=== PATIENT | female | born 1935 | race Caucasian/White ===

== ENCOUNTER 2017-08-28 19:20 | Emergency (ER) | payer MEDICARE, MEDICAID ==
[~2017-08-28] VITALS: Ht 167.6 cm; Wt 90.7 kg
--- NOTE | 2017-08-28 19:59 | NUR ---
BIB FAMILY, AMBULAOTRY TO ER BED 7 C/O "N/V/DIZZINESS/EPIGASTRIC PAIN SINCE YESTERDAY" RR ANKIT AND UNLABORED. NO SOB NOTED. NAD NOTED. NO NVD AT THIS TIME. PT GOWNED AT THIS TIME. PLACED ON MONITOR WAITING FOR MD MICHAELS.
--- NOTE | 2017-08-28 20:02 | NUR ---
DR. KELLY AT BEDSIDE FOR EVAL.
--- NOTE | 2017-08-28 20:10 | NUR ---
LAB AT BEDSIDE FOR BLOOD DRAW
[2017-08-28 20:15] LABS: BASOPHILS # (AUTO) 0.1 /CMM (0.0-0.2); BASOPHILS % (AUTO) 0.9 % (0.0-2.0); EOSINOPHILS # (AUTO) 0.2 /CMM (0.0-0.7); EOSINOPHILS % (AUTO) 2.5 % (0.0-6.0); HEMATOCRIT 34 % (33-45); HEMOGLOBIN 11.8 g/dL (11.5-14.8); LYMPHOCYTES # (AUTO) 2.6 /CMM (0.8-4.8); LYMPHOCYTES % (AUTO) 37.6 % (20.0-44.0); MEAN CORPUSCULAR HEMOGLOBIN 30 PG (26.0-33.0); MEAN CORPUSCULAR HGB CONC 35 g/dl (31.0-36.0); MEAN CORPUSCULAR VOLUME 88 fL (82-100); MONOCYTES # (AUTO) 0.4 /CMM (0.1-1.30); MONOCYTES % (AUTO) 6.2 % (2.0-12.0); NEUTROPHILS # (AUTO) 3.7 /CMM (1.8-8.9); NEUTROPHILS % (AUTO) 52.8 % (43.0-81.0); PLATELET COUNT (AUTO) 222 /CMM (150-450); RDW COEFFICIENT OF VARIATION 12.5 (11.5-15.0); RED BLOOD CELL COUNT(AUTO) 3.92 MIL/uL (4.0-5.2)
[2017-08-28 20:37] LABS: CALCIUM, SERUM 9.5 mg/dL (8.5-10.1); CARBON DIOXIDE 29 mmol/L (21-32); CHLORIDE 103 mmol/L (98-107); CREATININE 1.3 mg/dL (0.6-1.3); GLUCOSE 106 mg/dL (74-106); POTASSIUM 3.1 mmol/L (3.5-5.1); SODIUM SERUM 141 mmol/L (136-145); UREA NITROGEN, BLOOD 25 mg/dL (7-18)
[2017-08-28] MEDS ORDERED: POTASSIUM CHLORIDE 20 MEQ TAB.PRT.SR PO ONE ×2 (20:59→21:00)
--- NOTE | 2017-08-28 21:01 | NUR ---
DR. KELLY AT BEDSIDE SPEAKING TO PT REGARDING POC/ RESULTS
[2017-08-28 21:29] VITALS: BP 138/70
--- NOTE | 2017-08-28 21:29 | NUR ---
Patient discharged to home in stable condition. Written and verbal after care instructions given. Patient verbalizes understanding of instruction. ambulatory with a steady gait
== END 2017-08-28 21:30 | disposition home or self-care (01) ==
LOC: ER 19:24
DX: E87.6 Hypokalemia (principal); E11.9 Type 2 diabetes mellitus without complications; I10 Essential (primary) hypertension; N39.0 Urinary tract infection, site not specified
CPT/HCPCS: 36415; 80048-TC; 85025-TC; A4606; Z7610

== ENCOUNTER 2019-08-28 18:17 | Inpatient (IN) | payer MEDICARE, MEDICAID ==
[~2019-08-28] VITALS: Ht 165.1 cm; Wt 92.1 kg
--- NOTE | 2019-08-28 02:30 | NUR ---
RN NOTES INFORMED DR. VICKERS THAT PT IS TAKING SEROQUEL 50 MG PO FOR SLEEPING.. GOT AN ORDER TO CONTINUE IT. ORDER NOTED AND CARRIED OUT Addendum: 08/29/19 at 0249 by CIARA YAP RN RIGHT TIME AND DATE 08/28/19 @ 1508
[2019-08-28] MEDS ORDERED: ONDANSETRON HCL/PF 4 MG/2 ML VIAL ONE (18:57)
[2019-08-28] MEDS ORDERED: ONDANSETRON HCL/PF 4 MG/2 ML VIAL IVP ONE (19:00)
[2019-08-28 19:10] LABS: BASOPHILS # (AUTO) 0.1 /CMM (0.0-0.2); BASOPHILS % (AUTO) 0.9 % (0.0-2.0); EOSINOPHILS % (AUTO) 2.3 % (0.0-6.0); HEMATOCRIT 36 % (33-45); HEMOGLOBIN 11.7 g/dL (11.5-14.8); LYMPHOCYTES # (AUTO) 1.3 /CMM (0.8-4.8); LYMPHOCYTES % (AUTO) 22.1 % (20.0-44.0); MEAN CORPUSCULAR HGB CONC 33 g/dl (31.0-36.0); MEAN CORPUSCULAR VOLUME 90 fL (82-100); MONOCYTES # (AUTO) 0.4 /CMM (0.1-1.30); MONOCYTES % (AUTO) 5.9 % (2.0-12.0); NEUTROPHILS # (AUTO) 4.1 /CMM (1.8-8.9); NEUTROPHILS % (AUTO) 68.8 % (43.0-81.0); PLATELET COUNT (AUTO) 206 /CMM (150-450); RED BLOOD CELL COUNT(AUTO) 3.98 MIL/uL (4.0-5.2)
[2019-08-28 19:13] LABS: APPEARANCE,URINE Slightly Cloudy (CLEAR); BILIRUBIN,URINE SMALL (NEGATIVE); BLOOD, URINE Negative Ery/uL (NEGATIVE); KETONES,URINE Negative (NEGATIVE); LEUKOCYTE ESTERASE ,URINE Negative (NEGATIVE); NITRITE, URINE Negative (NEGATIVE); PH,URINE 5.5 (5.0-8.0); PROTEIN,URINE 30 mg/dl (NEGATIVE); UGLUCOSE Negative (NEGATIVE)
[2019-08-28 19:15] LABS: COLOR,URINE DARK YELLOW (YELLOW)
--- NOTE | 2019-08-28 19:21 | NUR ---
patient bibra from home, confused and not eating x 2 days. On room air, breathing evenly and unlabored. connected to the monitor and pulse ox. wound dressing done, will continue to montor accordingly. daughter at bedside.
--- NOTE | 2019-08-28 19:23 | NUR ---
urine collected and sent to lab.
--- NOTE | 2019-08-28 19:23 | NUR ---
report given to Brenda GONSALES for amanda.
[2019-08-28 19:24] LABS: ALANINE AMINOTRANSFERASE 24 U/L (12-78); ALBUMIN 2.8 g/dL (3.4-5.0); ALKALINE PHOSPHATASE 50 U/L (46-116); ASPARTATE AMINOTRANSFERASE 28 U/L (15-37); BILIRUBIN,DIRECT 0.2 mg/dL (0.0-0.2); BILIRUBIN,TOTAL 0.9 mg/dL (0.2-1.0); CALCIUM, SERUM 9.3 mg/dL (8.5-10.1); CARBON DIOXIDE 29 mmol/L (21-32); CHLORIDE 114 mmol/L (98-107); CREATININE 1.2 mg/dL (0.6-1.3); GLUCOSE 146 mg/dL (74-106); LIPASE 192 U/L (73-393); POTASSIUM 3.8 mmol/L (3.5-5.1); SODIUM SERUM 151 mmol/L (136-145); TOTAL PROTEIN, SERUM 6.2 g/dL (6.4-8.2); UREA NITROGEN, BLOOD 25 mg/dL (7-18)
[2019-08-28 19:26] LABS: RBC,URINE 0-2 /HPF (0-2)
[2019-08-28 19:27] LABS: BACTERIA,URINE None seen /HPF (None Seen); SQUAMOUS EPITHELIAL CELL,UR Moderate /HPF (None Seen); WBC,URINE 0-2 /HPF (0-3)
--- NOTE | 2019-08-28 19:56 | NUR ---
CALLED NURSING SUP FOR M/S BED.
[2019-08-28] MEDS ORDERED: IV NS 0.9% 1,000 ML BAG IV ONE (20:00)
[2019-08-28] MEDS ORDERED: BISACODYL SUPP (10 MG) 10 MG/SUPP.RECT SUPP.RECT RC ONE ×2 (20:00→20:21)
[2019-08-28] MEDS ORDERED: NA PHOS,M-B/NA PHOS,DI-BA 1 EA ENEMA RC ONE ×2 (20:00→20:21)
[2019-08-28] MEDS ORDERED: LOSA100T31 PO (20:55)
[2019-08-28] MEDS ORDERED: SITA1TAB6 PO (20:55)
[2019-08-28] MEDS ORDERED: ASPI-1152 PO (20:55)
[2019-08-28] MEDS ORDERED: MEMA10TA PO (20:55)
--- NOTE | 2019-08-28 21:18 | NUR ---
PT TAKEN UP TO 2ND FLOOR VIA [facility]
--- NOTE | 2019-08-28 21:20 | NUR ---
RN NOTES RECEIVED PT. FROM ER WITH DX. OF DEHYDRATION, CONSTIPATION, DYSPHAGIA, A/OX2. ROMANIAN SPEAKING, FAMILY AT BEDSIDE,SKIN ASSESSMENT WAS DONE, ADMISSION INSTRUCTION WAS RENDERED, CALL LIGHT WITHIN REACH, SIDERAILSUPX2, CONTINUE TO MONITOR
[2019-08-28 21:30] VITALS: BP 127/68
--- NOTE | 2019-08-28 22:35 | NUR ---
RN NOTES GOT THE RIGHT DOSE OF PT.'S MEDICATION ( SEROQUEL) FRIOM HER DAUGHTER JOHNY
[2019-08-28] MEDS ORDERED: Medication Not On Formulary EA (Sitagliptin Phos/Metformin Hcl (Janumet 50-1,000 Mg Tabl PO SCH (23:00)
[2019-08-28] MEDS ORDERED: QUET50TA PO (23:06)
[2019-08-28] MEDS ORDERED: MORPHINE SULFATE INJ 2 MG/ML DISP.SYRIN IV PRN (23:30)
[2019-08-28] MEDS ORDERED: DEXTROSE 50%-WATER 50 ML DISP.SYRIN IV PRN (23:30)
[2019-08-28] MEDS ORDERED: TEMAZEPAM 7.5 MG CAPSULE PO PRN (23:30)
[2019-08-28] MEDS: ASPIRIN EC 81 MG TABLET.DR PO SCH (23:38)
[2019-08-28] MEDS: QUETIAPINE FUMARATE 25 MG TABLET PO SCH (23:48)
[2019-08-29 02:01] VITALS: BP 127/68
[2019-08-29 06:54] LABS: BASOPHILS % (AUTO) 0.6 % (0.0-2.0); EOSINOPHILS % (AUTO) 3.4 % (0.0-6.0); HEMATOCRIT 36 % (33-45); HEMOGLOBIN 11.7 g/dL (11.5-14.8); LYMPHOCYTES # (AUTO) 1.5 /CMM (0.8-4.8); MEAN CORPUSCULAR HGB CONC 32 g/dl (31.0-36.0); MEAN CORPUSCULAR VOLUME 91 fL (82-100); MONOCYTES # (AUTO) 0.4 /CMM (0.1-1.30); MONOCYTES % (AUTO) 7.3 % (2.0-12.0); NEUTROPHILS # (AUTO) 3.5 /CMM (1.8-8.9); NEUTROPHILS % (AUTO) 62.7 % (43.0-81.0); PLATELET COUNT (AUTO) 189 /CMM (150-450); RED BLOOD CELL COUNT(AUTO) 4.01 MIL/uL (4.0-5.2); WHITE BLOOD COUNT (AUTO) 5.6 K/uL (4.3-11.0)
[2019-08-29 07:00] LABS: CHOLESTEROL 152 mg/dL (<200); HDL CHOLESTEROL 44 mg/dL (40-60); LDL 76 mg/dL (0-99); TRIGLYCERIDES 106 mg/dL (30-150)
--- NOTE | 2019-08-29 07:00 | NUR ---
RN NOTES PT IS AWAKE , NOT IN DISTRESS, NO PAIN NOTED, MORNING CARE RENDERED, CALL LIGHT WITHIN REACH, SIDERAILSUPX2, PT. NEEDS ATTENDED
[2019-08-29 07:06] LABS: IRON, SERUM 41 ug/dl (50-175); TOTAL IRON BINDING CAPACITY 220 ug/dl (250-450)
[2019-08-29 07:13] LABS: ALANINE AMINOTRANSFERASE 22 U/L (12-78); ALBUMIN 2.5 g/dL (3.4-5.0); ALKALINE PHOSPHATASE 44 U/L (46-116); ASPARTATE AMINOTRANSFERASE 26 U/L (15-37); B-TYPE NATRIURETIC PEPTIDE 255 PG/ML (0-125); CALCIUM, SERUM 8.8 mg/dL (8.5-10.1); CARBON DIOXIDE 25 mmol/L (21-32); CHLORIDE 116 mmol/L (98-107); CREATININE 1.2 mg/dL (0.6-1.3); GLUCOSE 122 mg/dL (74-106); MAGNESIUM 2.1 mg/dL (1.8-2.4); PHOSPHORUS 4.3 mg/dL (2.5-4.9); POTASSIUM 3.8 mmol/L (3.5-5.1); SODIUM SERUM 151 mmol/L (136-145); TOTAL PROTEIN, SERUM 5.9 g/dL (6.4-8.2); UREA NITROGEN, BLOOD 22 mg/dL (7-18)
--- NOTE | 2019-08-29 07:26 | NUR ---
MS RN OPENING NOTES RECEIVED PATIENT IN BED, ASLEEP, AROUSBALE TO VERBAL AND TACTILE STIMULI. HOB ELEVATED. DENIES ANY C/O PAIN NOR DISCOMFORT AT THIS TIME. RT HAND # 20 INTACT AND PATENT. BED IN LOWEST POSITION, LOCKED. BED ALARM ON. CALL LIGHT WITHIN REACH.
--- NOTE | 2019-08-29 07:45 | NUR ---
MS RN NOTES PATIENT'S DTR (JOHNY) CALLED AND STATED OK TO GIVE INFORMATION AND ADD GRANDSON (AMPARO) TO FACE SHEET AND HE WILL BE INVOLVED WITH CARE WELL. AMPARO ( GRANDSON: ) [phone]. JOHNY (DTR: TEACHER) [phone]
[2019-08-29 08:00] VITALS: BP 131/67
[2019-08-29] MEDS: BLOOD SUGAR DIAGNOSTIC 1 EACH STRIP IN SCH ×4 (08:17→21:19)
[2019-08-29] MEDS: PANTOPRAZOLE 40 MG TABLET.DR PO SCH (08:19)
[2019-08-29] MEDS: METFORMIN 500 MG TABLET PO SCH (08:44)
[2019-08-29] MEDS: MEMANTINE HCL 5 MG TABLET PO SCH ×2 (08:44→17:47)
[2019-08-29] MEDS: LINAGLIPTIN 5 MG TABLET PO SCH (08:44)
[2019-08-29] MEDS: ASPIRIN EC 81 MG TABLET.DR PO SCH (08:44)
[2019-08-29] MEDS: IV 1/2NS 1000 ML 1,000 ML IV PRN ×2 (10:32→23:44)
--- NOTE | 2019-08-29 11:49 | NUR ---
Social service consult requested by wound RN Sherri for multiple pressure ulcers. Per chart review and MD notes, Pt is a 83-year-old female Solomon Islander-speaking was brought to the emergency department due to worsening oral intake, nausea and nonbloody vomiting, more altered mental status and significant constipation for almost 8 days. Pt has a diagnosis of Dementia and is unable to provide any meaningful history. INTERCELL CONNECTOR PLACER was informed by pt's bedside RN that pt's daughter Astrid and has given permission to [facility] staff to speak with her son Dr. 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 INTERCELL CONNECTOR PLACER contacted pt's grandson Andrei who reported that pt lives at home with a 24/7 caregiver. Pt has very good family support as well. Per Andrei, pt is receiving home health services for the past couple of months. For the past week, [facility] home health agency was coming to pt's home on a daily basis for the wound on her heel. Andrei stated, they had got her new boots for her feet, however pt. didn't feel comfortable in them and developed a blister that burst. Since then pt has not been able to place pressure on her feet and has been bedridden for approximately two and a half weeks. Family is hoping and prefers to take pt back home, if pt. is able. [facility] informed him that a top case assembler will also be contacting him regarding plan of care.
[2019-08-29] MEDS: GLUCERNA SHAKE 237 ML CAN PO SCH ×2 (12:57→18:20)
[2019-08-29 15:55] VITALS: BP 111/59
[2019-08-29] MEDS: ONDANSETRON HCL/PF 4 MG/2 ML VIAL IVP PRN (17:59)
--- NOTE | 2019-08-29 18:50 | NUR ---
MS RN CLOSING NOTES PATIENT RESTING COMFORTABLY IN BED. HOB ELEVATED. NO S/S OF RESPIRATORY DISTRESS. DENIES ANY C/O PAIN NOR DISCOMFORT AT THIS TIME. RT HAND # 20 INTACT AND PATENT INFUSING NS AT 75ML/HR MAYRA HENNING. SEEN BY ST MAYRA HENNING. ON PUREED DIET WITH FAIR PO INTAKE OBSERVED DURING DINNER. BED IN LOWEST POSITION, LOCKED. BED ALARM ON. CALL LIGHT WITHIN REACH. IN NO APPARENT DISTRESS.
--- NOTE | 2019-08-29 19:40 | NUR ---
RN NOTES RECEIVED PT. AWAKE ON BED, A/OX2- SAO TOMEAN SPEAKING, FAMILY AT BEDSIDE, NO APIN NOTED, NO SOB, CALL LIGHT WITHIN REACH, SIDERAILSUPX2, CONTINUE TO MONITOR
[2019-08-29 20:00] VITALS: BP 114/56
--- NOTE | 2019-08-29 21:15 | NUR ---
Met with patient and daughter Astrid at bedside. Patient primary language is New Zealander. She lives locally with a 24/7 caregiver in the first floor senior apartment. She is not ambulatory for months now due to foot ulcers. She is confined to chair and bed most of the time and requires max to total assist with adl's. She is currently on service with [employer] but family cannot recall the name os the company. She own a walker and receives [facility] provider. Current dc plan is to return home. Addendum: 08/29/19 at 2116 by DLE BENOIT RN Amended: Links added.
[2019-08-29] MEDS: QUETIAPINE FUMARATE 25 MG TABLET PO SCH (21:18)
--- NOTE | 2019-08-29 22:00 | NUR ---
RN NOTES BLOOD SUGAR-137.. NO INSULIN COVERAGE GIVEN .. PT REFUSED TO EAT
--- NOTE | 2019-08-29 22:08 | NUR ---
Met with patient and daughter Astrid at bedside. Patient primary language is Mongolian. She lives locally with a 24/7 caregiver in the first floor senior apartment. She is not ambulatory for months now due to foot ulcers. She is confined to chair and bed most of the time and requires max to total assist with adl's. She is currently on service with [employer] but family cannot recall the name os the company. She own a walker and receives [facility] provider. Current dc plan is to return home. Pcp is Dr. Andrei Casas in [place] Addendum: 08/29/19 at 2208 by DEL BENOIT RN Amended: Links added.
--- NOTE | 2019-08-30 06:53 | NUR ---
RN NOTES AWAKE, MORNING CARE RENDERED, DENIES PAIN, NO SOB, SIDERAILSUPX2, PT. NEEDS ATTENDED
--- NOTE | 2019-08-30 07:13 | NUR ---
MS RN OPENING NOTES RECEIVED PATIENT IN BED ALERT AND AWAKE ORIENTED X1 -2. HOB ELEVATED. NO SOB. DENIES ANY C/O PAIN NOR DISCOMFORT AT THIS TIME. RT HAND # 20 INTACT AND PATENT INFUSING 1/2 NS @ 75ML/HR. BED IN LOWEST POSITION, LOCKED. BED ALARM ON. CALL LIGHT WITHIN REACH.
[2019-08-30 07:30] VITALS: BP 106/66
[2019-08-30] MEDS: PANTOPRAZOLE 40 MG TABLET.DR PO SCH (08:16)
[2019-08-30] MEDS: BLOOD SUGAR DIAGNOSTIC 1 EACH STRIP IN SCH ×4 (08:16→22:27)
[2019-08-30] MEDS: GLUCERNA SHAKE 237 ML CAN PO SCH ×3 (08:17→17:34)
[2019-08-30] MEDS: METFORMIN 500 MG TABLET PO SCH (08:17)
[2019-08-30] MEDS: ASPIRIN EC 81 MG TABLET.DR PO SCH (08:17)
[2019-08-30] MEDS: LINAGLIPTIN 5 MG TABLET PO SCH (08:17)
[2019-08-30] MEDS: MEMANTINE HCL 5 MG TABLET PO SCH ×2 (08:17→17:34)
--- NOTE | 2019-08-30 10:59 | NUR ---
WOUND CARE CONSULT: PT PRESENTS WITH HEEL WOUNDS AND BREASTFOLD/PERIANAL REDNESS, PRESENT ON ADMISSION. DEFER TO DPM FOR LOWER EXTREMITIES. RECOMMENDATIONS MADE FOR SKIN PROTECTION AND SKIN CARE. DISCUSSED WITH NURSING STAFF. PT ON EDMOND ISOFLEX LOW AIRLOSS BED. WILL SEE PRN. MEI IN AGREEMENT WITH PLAN OF CARE. Addendum: 08/30/19 at 1100 by ABDOUL RITCHIE WNDNU Amended: Links added.
[2019-08-30] MEDS ORDERED: Z GUARD REMEDY 2 OZ OINT TP PRN (11:00)
[2019-08-30] MEDS: ONDANSETRON HCL/PF 4 MG/2 ML VIAL IVP PRN (12:23)
[2019-08-30] MEDS: THERAHONEY GEL 1.5 OZ TUBE TP SCH (12:23)
[2019-08-30] MEDS: Z GUARD REMEDY 2 OZ OINT TP SCH (12:24)
[2019-08-30] MEDS: IV 1/2NS 1000 ML 1,000 ML IV PRN (16:24)
--- NOTE | 2019-08-30 19:25 | NUR ---
MS RN CLOSING NOTES PATIENT RESTING COMFORTABLY IN BED. HOB ELEVATED. NO SOB. DENIES ANY C/O PAIN NOR DISCOMFORT AT THIS TIME. RT HAND # 20 INTACT AND PATENT INFUSING NS AT 75ML/HR MAYRA WELL. FAMILY AT BEDSIDE. WOUND CARE DONE MAYRA WELL. BED IN LOWEST POSITION, LOCKED. BED ALARM ON. CALL LIGHT WITHIN REACH. IN NO APPARENT DISTRESS.
--- NOTE | 2019-08-30 19:26 | NUR ---
MS RN NOTES NOTED PATIENT WITH LARGE BM DURING HE SHIFT X1.
--- NOTE | 2019-08-30 19:50 | NUR ---
RN NOTES RECEIVED PATIENT, AWAKE, PUERTO RICAN SPEAKING, RESTING COMFORTABLY IN HER BED. SAFETY MEASURES IN PLACE, BED IN LOW LOCKED POSITION, CALL LIGHT WITHIN EASY REACH, KEEP CLEAN DRY AND COMFORTABLE. IV ACCESS INTACT AND PATENT, NO SIGNS AND SYMPTOMS OF INFECTION, ALL NEEDS ANTICIPATED, WILL CONTINUE TO MONITOR ACCORDINGLY.
[2019-08-30 20:00] VITALS: BP 116/48
[2019-08-30 20:49] VITALS: BP 116/48
[2019-08-30] MEDS: QUETIAPINE FUMARATE 25 MG TABLET PO SCH (21:47)
--- NOTE | 2019-08-30 22:00 | NUR ---
RN NOTES ACCU-CHECK DONE, RESULT IS 106MG/DL ( FAILED DATA TRANSFER )NO COVERAGE PER SLIDING SCALE.
[2019-08-31] MEDS: IV 1/2NS 1000 ML 1,000 ML IV PRN ×2 (05:28→20:54)
--- NOTE | 2019-08-31 06:16 | NUR ---
RN NOTES ALL NEEDS ATTENDED AND MET, ABLE TO REST AND SLEPT AT INTERVALS, NO DISTRESS. WILL ENDORSE TO AM NURSE FOR CONTINUITY OF CARE.
[2019-08-31] MEDS: BLOOD SUGAR DIAGNOSTIC 1 EACH STRIP IN SCH ×4 (07:17→22:41)
--- NOTE | 2019-08-31 07:30 | NUR ---
MS/RN Patient received Patient received from nightshift. Upon receiving patient, right hand and arm noted to be with +4 edema. IV previously inserted on that hand and wrapped with desiree wrap. IV fluids stopped and heplock removed. Arm elevated on pillows, will inform MD. Does not appear to be in any pain or distress, vital signs stable. Safety measures in place, call light in reach, bed in low setting, side rails X3 in upright position. Will continue to monitor.
[2019-08-31 08:00] VITALS: BP 145/69
[2019-08-31] MEDS: GLUCERNA SHAKE 237 ML CAN PO SCH ×3 (08:29→17:01)
[2019-08-31] MEDS: LINAGLIPTIN 5 MG TABLET PO SCH (08:29)
[2019-08-31] MEDS: METFORMIN 500 MG TABLET PO SCH (08:29)
[2019-08-31] MEDS: PANTOPRAZOLE 40 MG TABLET.DR PO SCH (08:29)
[2019-08-31] MEDS: ASPIRIN EC 81 MG TABLET.DR PO SCH (08:29)
[2019-08-31] MEDS: MEMANTINE HCL 5 MG TABLET PO SCH ×2 (08:29→17:01)
[2019-08-31] MEDS: THERAHONEY GEL 1.5 OZ TUBE TP SCH (08:30)
[2019-08-31] MEDS: Z GUARD REMEDY 2 OZ OINT TP SCH (08:30)
[2019-08-31 08:35] LABS: BASOPHILS % (AUTO) 0.6 % (0.0-2.0); EOSINOPHILS % (AUTO) 3.6 % (0.0-6.0); HEMATOCRIT 32 % (33-45); HEMOGLOBIN 10.7 g/dL (11.5-14.8); LYMPHOCYTES # (AUTO) 1.7 /CMM (0.8-4.8); LYMPHOCYTES % (AUTO) 26.9 % (20.0-44.0); MEAN CORPUSCULAR HGB CONC 33 g/dl (31.0-36.0); MEAN CORPUSCULAR VOLUME 89 fL (82-100); MONOCYTES # (AUTO) 0.4 /CMM (0.1-1.30); MONOCYTES % (AUTO) 6.8 % (2.0-12.0); NEUTROPHILS % (AUTO) 62.1 % (43.0-81.0); PLATELET COUNT (AUTO) 159 /CMM (150-450); RED BLOOD CELL COUNT(AUTO) 3.66 MIL/uL (4.0-5.2); WHITE BLOOD COUNT (AUTO) 6.4 K/uL (4.3-11.0)
[2019-08-31 08:51] LABS: CALCIUM, SERUM 8.2 mg/dL (8.5-10.1); CREATININE 1.3 mg/dL (0.6-1.3); POTASSIUM 3.7 mmol/L (3.5-5.1)
--- NOTE | 2019-08-31 10:00 | NUR ---
MS/RN S/B Dr Wallace Seen by MD - continue with IV hydration, PT evaluation and await final wound cultures.
--- NOTE | 2019-08-31 11:30 | NUR ---
MS/RN Extremity arterial study Extremity arterial study completed. Resulted as peripheral arterial disease noted below left knee. Within the right leg, no hemodynamically significant disease.
[2019-08-31] MEDS: ONDANSETRON HCL/PF 4 MG/2 ML VIAL IVP PRN ×2 (13:17→18:37)
--- NOTE | 2019-08-31 14:38 | NUR ---
MS/RN S/B Nephro Seen by nephro - labs ordered for tomorrow.
[2019-08-31 16:00] VITALS: BP 127/71
--- NOTE | 2019-08-31 18:46 | NUR ---
MS/RN End note Patient remains in stable condition. Will endorse to surfboard maker.
--- NOTE | 2019-08-31 19:05 | NUR ---
MS RN NOTES RECEIVED PT IN BED AWAKE WITH FAMILY AT BEDSIDE. PT A/O X 1-2 TONGAN SPEAKING. RESPIRATIONS EVEN AND UNLABORED WITH NO S/S OF ACUTE DISTRESS OR SOB NOTED. NO COMPLAINTS OF PAIN AT THIS TIME. PT NOTED WITH LHAND 22G INFUSING 1/2 NS @75CC/HR. SAFETY MEASURES IN PLACE WITH BED IN LOWEST LOCKED POSITION WITH SIDE RAILS UP X2. CALL LIGHT WITHIN REACH. WILL CONTINUE TO MONITOR.
[2019-08-31 20:00] VITALS: BP 131/56
[2019-08-31] MEDS: QUETIAPINE FUMARATE 25 MG TABLET PO SCH (22:43)
--- NOTE | 2019-09-01 07:54 | NUR ---
MS RN NOTES PT IN BED AWAKE. PT A/O X 1-2 WELSH SPEAKING. RESPIRATIONS EVEN AND UNLABORED WITH NO S/S OF ACUTE DISTRESS OR SOB NOTED THROUGHOUT SHIFT. NO COMPLAINTS OF PAIN AT THIS TIME. PT NOTED WITH LHAND 22G INFUSING 1/2 NS @75CC/HR. SAFETY MEASURES IN PLACE WITH BED IN LOWEST LOCKED POSITION WITH SIDE RAILS UP X2. PT KEPT CLEAN, DRY, AND COMFORTABLE. PT TURNED Q2 HOURS THROUGHOUT SHIFT. CALL LIGHT WITHIN REACH. WILL ENDORSE TO ONCOMING NURSE FOR FRANCY.
[2019-09-01 08:00] VITALS: BP 120/88
--- NOTE | 2019-09-01 08:00 | NUR ---
RN NOTES RECEIVED PATIENT IN TH4E BED A/A/O X1, BUT REDIRECTABLE, PATIENT CZECH SPEAKER, SELECTIVE WITH THE TALKING, NO ACUTE RESPIRATORY DISTRESS, PATIENT TOTAL CARE, WOUND ON BILATERAL HEELS DRESSING INTACT, DVT PUMP MON, ELEVATED USING PILLOWS, EAT BY ASSIST OF SALES ENGINEER ACCOUNT MANAGER TOLERATED BREAKFAST 40 %, ASSIST TURN AND REPOSITION Q 2 HR. INFUSING 1/2 NS AT 75 ML/HR INTACT ON LEFT HAND. PATIENT INCONTINENT USING Z-GUARD, CALL LIGHT WITHIN TO REACH. CONTINUED MONITORING.
[2019-09-01] MEDS: BLOOD SUGAR DIAGNOSTIC 1 EACH STRIP IN SCH ×4 (08:29→21:38)
[2019-09-01] MEDS: LINAGLIPTIN 5 MG TABLET PO SCH (08:30)
[2019-09-01] MEDS: ASPIRIN EC 81 MG TABLET.DR PO SCH (08:30)
[2019-09-01] MEDS: MEMANTINE HCL 5 MG TABLET PO SCH ×2 (08:30→18:52)
[2019-09-01] MEDS: PANTOPRAZOLE 40 MG TABLET.DR PO SCH (08:30)
[2019-09-01] MEDS: METFORMIN 500 MG TABLET PO SCH (08:30)
[2019-09-01] MEDS: Z GUARD REMEDY 2 OZ OINT TP SCH (08:31)
[2019-09-01] MEDS: THERAHONEY GEL 1.5 OZ TUBE TP SCH (08:31)
[2019-09-01] MEDS: GLUCERNA SHAKE 237 ML CAN PO SCH ×3 (08:32→18:37)
[2019-09-01] MEDS ORDERED: KEY,NONCONTROL,TO KEEP IN PYXI 1 EA MC ONE (09:27)
[2019-09-01] MEDS: IV 1/2NS 1000 ML 1,000 ML IV PRN ×2 (10:37→23:00)
--- NOTE | 2019-09-01 11:50 | NUR ---
RN NOTES ADMINISTERED NARCO 5/325 MG PO PRN FOR BLE PAIN, PER MD ORDER, ALSO PATIENT GOING TO GET WOUND DEBRIDEMENT AT THIS TIME VIA WOUND MD, PICTURE TAKEN, GET CONSENT VERIFICATION TELEPHONE SIGNED VIA SON AMPARO, CO-SIGNED BY CO WORKER RUEL GONSALES . CONTINUED MENTORING.
[2019-09-01] MEDS ORDERED: HYDROCODONE/APAP 5/325MG 1 EACH TABLET PO ONE (12:00)
[2019-09-01] MEDS: DOCUSATE SODIUM 250 MG CAPSULE PO SCH (12:46)
[2019-09-01] MEDS: ONDANSETRON HCL/PF 4 MG/2 ML VIAL IVP PRN (14:33)
--- NOTE | 2019-09-01 14:33 | NUR ---
RN NOTES ADMINISTERED ZOFRAN 4 MG/ML IV PUSH FOR NAUSEA, CONTINUED MONITORING.
[2019-09-01 16:00] VITALS: BP 106/53
--- NOTE | 2019-09-01 18:00 | NUR ---
RN NOTES BS-106 MG/DL NO COVERAGE GIVEN, ADMINISTERED SCHEDULED MEDICATION, V/S STABLE, PATIENT REFUSED PAIN AT THIS TIME. ELEVATED BLE USING PILLOWS, INFUSING AMPICILLIN 100 ML/HR INTACT ON LEFT HAND, CALL LIGHT WITHIN TO REACH.. ASSIST EATING BY BURGLAR ALARM ASSEMBLER TOLERATED DINNER 70%, ALSO ASSIST TURN AND REPOSTION Q 2 HR, SAFETY PRECAUTION MAINTAINED ALL THE TIME. ENDORSED ONCOMING NURSE FOLLOW PLAN OF CARE.
[2019-09-01] MEDS: AMPICILLIN 1 GM in IV NS 0.9% 50 ML IV SCH ×2 (18:52→23:07)
--- NOTE | 2019-09-01 19:05 | NUR ---
MS RN OPENING NOTES Received patient, awake on bed. On RA, no SOB/respiratory distress noted, no s/sx of discomfort noted at this time. With IVF infusing well as ordered. Kept on bed clean, dry and comfortable. On fall and aspiration precautions. Call light within easy reach. Will continue to monitor accordingly.
[2019-09-01 20:00] VITALS: BP 111/60
[2019-09-01 20:32] VITALS: BP 111/60
[2019-09-01] MEDS: QUETIAPINE FUMARATE 25 MG TABLET PO SCH (21:38)
[2019-09-01] MEDS: INSULIN REGULAR, HUMAN 100 UNIT/ML 3 ML VIAL SQ PRN (21:54)
[2019-09-02] MEDS: AMPICILLIN 1 GM in IV NS 0.9% 50 ML IV SCH ×4 (05:06→23:53)
[2019-09-02] MEDS: BLOOD SUGAR DIAGNOSTIC 1 EACH STRIP IN SCH ×4 (06:45→22:26)
--- NOTE | 2019-09-02 06:54 | NUR ---
MS RN CLOSING NOTES Patient asleep on Stevens's position on bed. On RA, no SOB/respiratory distress noted at this time. No new complaints made. All nursing needs attended, due meds given as ordered. Bilateral heels dressing remained clean and dry, no bleeding noted. Kept on bed clean, dry and comfortable. Call light within easy reach. On fall and aspiration precautions. Endorsed.
[2019-09-02 08:00] VITALS: BP_SYST 133; BP_SYST 144; BP_DIAS 61; BP_DIAS 72
--- NOTE | 2019-09-02 08:00 | NUR ---
RN NOTES RECEIVED PATIENT IN THE BED A/A/O X1, BUT REDIRECTABLE, PATIENT JAPANESE SPEAKER, SELECTIVE WITH THE TALKING, NO ACUTE RESPIRATORY DISTRESS, PATIENT TOTAL CARE, WOUND ON BILATERAL HEELS DRESSING INTACT, DVT PUMP ON, ELEVATED USING PILLOWS, EAT BY ASSIST OF L D RN TOLERATED BREAKFAST 40 %, ASSIST TURN AND REPOSITION Q 2 HR. INFUSING 1/2 NS AT 75 ML/HR INTACT ON LEFT HAND. PATIENT INCONTINENT USING Z-GUARD, CALL LIGHT WITHIN TO REACH. CONTINUED MONITORING.
[2019-09-02] MEDS: METFORMIN 500 MG TABLET PO SCH (08:09)
[2019-09-02] MEDS: GLUCERNA SHAKE 237 ML CAN PO SCH ×3 (08:09→16:10)
[2019-09-02] MEDS: ASPIRIN EC 81 MG TABLET.DR PO SCH (08:09)
[2019-09-02] MEDS: DOCUSATE SODIUM 250 MG CAPSULE PO SCH (08:09)
[2019-09-02] MEDS: LINAGLIPTIN 5 MG TABLET PO SCH (08:09)
[2019-09-02] MEDS: PANTOPRAZOLE 40 MG TABLET.DR PO SCH (08:09)
[2019-09-02] MEDS: MEMANTINE HCL 5 MG TABLET PO SCH ×2 (08:10→17:11)
[2019-09-02] MEDS: THERAHONEY GEL 1.5 OZ TUBE TP SCH (08:11)
[2019-09-02] MEDS: Z GUARD REMEDY 2 OZ OINT TP SCH (08:12)
--- NOTE | 2019-09-02 12:00 | NUR ---
RN NOTES BS-115MG/DL , ADMINISTERED SCHEDULED MEDICATION, INFUSING AMOXICILLIN 100 ML/HR, ASSIST TURN AND REPOSTION Q 2 HR. DRESSING CHANGED BY WOUND MD MAZA, PER WOUND MD PATIENT STABLE TO DISCHARGE HOME WITH HOME HEALTH , AND WILL FOLLOW IN ONE WEEKS AT OUTPATIENT CLINIC.
[2019-09-02 16:00] VITALS: BP 131/63
[2019-09-02] MEDS: ACETAMINOPHEN 325 MG TABLET PO PRN (16:07)
[2019-09-02] MEDS: ONDANSETRON HCL/PF 4 MG/2 ML VIAL IVP PRN (16:07)
--- NOTE | 2019-09-02 16:07 | NUR ---
RN NOTES ADMINISTERED ZOFRAN 4 MG/ML FOR NAUSEA, AND TYLENOL 650 MG PO PRN FOR GENERALIZED PAIN, CONTINUED MONITORING.
--- NOTE | 2019-09-02 18:00 | NUR ---
rn notes patient feel uncomfortable , medication were administered for nausea not effective, refused to eat dinner. called Greg DNP and per hospitalist patient will stay tonight for more observation. bs-66 mg/dl . call light within to reach, administered scheduled medication. family next to the bed.
[2019-09-02] MEDS: IV 1/2NS 1000 ML 1,000 ML IV PRN (18:56)
[2019-09-02] MEDS ORDERED: HYDROCODONE/APAP 5/325MG 1 EACH TABLET PO PRN (19:00)
[2019-09-02] MEDS: METOCLOPRAMIDE HCL 10 MG/2 ML VIAL IV PRN (19:00)
--- NOTE | 2019-09-02 19:00 | NUR ---
RN NOTES PATIENT STILL COMPLAINING OF NAUSEA, AND REFUSED TO EAT, NOTIFIED HOSPITALIST JEROD SWEENEY AND GET REGLAN 1O MG /ML IV PUSH, ORDER TAKEN AND CARRIED OUT. ADMINISTERED REGLAN 10 MG/ML IV PUSH PRESCRIBED FOR NAUSEA. ENDORSED ONCOMING NURSE FOLLOW PLAN OF CARE.
--- NOTE | 2019-09-02 19:51 | NUR ---
RN NOTES RECEIVED PATIENT AWAKE, NO SIGNS OF ACUTE DISTRESS, DAUGHTER AND SON AT BEDSIDE, DAUGHTER IS FEEDING THE PATIENT AT THIS TIME WITH A HOSPITAL FOOD TRAY THAT HAS BEEN SERVED DURING DINNER, ASPIRATION PRECAUTION EMPHASIZED, SAFETY MEASURES IN PLACED, BED IN LOW LOCKED POSITION, CALL LIGHT WITH IN EASY REACH, IV IS INFILTRATED, REMOVED, WILL RE INSERT A NEW SITE. ALL NEEDS ANTICIPATED, KEEP CLEAN, WARM DRY AND COMFORTABLE. WILL CONTINUE TO MONITOR ACCORDINGLY.
[2019-09-02 20:15] VITALS: BP 128/60
[2019-09-02] MEDS: QUETIAPINE FUMARATE 25 MG TABLET PO SCH (22:20)
[2019-09-02] MEDS: INSULIN REGULAR, HUMAN 100 UNIT/ML 3 ML VIAL SQ PRN (22:22)
[2019-09-03 04:25] VITALS: BP 126/62
[2019-09-03] MEDS: AMPICILLIN 1 GM in IV NS 0.9% 50 ML IV SCH ×2 (05:43→12:12)
--- NOTE | 2019-09-03 06:14 | NUR ---
RN NOTES ALL NEEDS ATTENDED AND MET, ABLE TO REST AND SLEPT AT INTERVALS, NO NAUSEA AND OR VOMITING NOTED THROUGHOUT THE SHIFT. DENIES ANY PAIN OR DISCOMFORT, SAFETY MEASURES IN PLACED, CALL LIGHT WITHIN EASY REACH. KEPT CLEAN DRY AND COMFORTABLE. WILL ENDORSE TO AM NURSE FOR CONTINUITY OF CARE.
[2019-09-03] MEDS: BLOOD SUGAR DIAGNOSTIC 1 EACH STRIP IN SCH ×4 (07:46→21:30)
[2019-09-03 08:00] VITALS: BP 142/71
--- NOTE | 2019-09-03 08:00 | NUR ---
RN NOTES RECEIVED PATIENT IN THE BED A/A/O X1, BUT REDIRECTABLE, PATIENT ZAMBIAN SPEAKER, SELECTIVE WITH THE TALKING, NO ACUTE RESPIRATORY DISTRESS, PATIENT TOTAL CARE, WOUND ON BILATERAL HEELS DRESSING INTACT, DVT PUMP ON, ELEVATED USING PILLOWS, EAT BY ASSIST OF COMPONENT ASSEMBLER SUPERVISOR , TOLERATED BREAKFAST 100 %, ASSIST TURN AND REPOSITION Q 2 HR. INFUSING 1/2 NS AT 75 ML/HR INTACT ON RIGHT WRIST PATIENT INCONTINENT USING Z-GUARD, CALL LIGHT WITHIN TO REACH. CONTINUED MONITORING.
[2019-09-03] MEDS: ASPIRIN EC 81 MG TABLET.DR PO SCH (08:42)
[2019-09-03] MEDS: MEMANTINE HCL 5 MG TABLET PO SCH ×2 (08:42→18:12)
[2019-09-03] MEDS: PANTOPRAZOLE 40 MG TABLET.DR PO SCH (08:43)
[2019-09-03] MEDS: LINAGLIPTIN 5 MG TABLET PO SCH (08:43)
[2019-09-03] MEDS: DOCUSATE SODIUM 250 MG CAPSULE PO SCH (08:43)
[2019-09-03] MEDS: METFORMIN 500 MG TABLET PO SCH (08:43)
[2019-09-03] MEDS: GLUCERNA SHAKE 237 ML CAN PO SCH ×3 (08:43→18:12)
[2019-09-03] MEDS: THERAHONEY GEL 1.5 OZ TUBE TP SCH (08:44)
[2019-09-03] MEDS: Z GUARD REMEDY 2 OZ OINT TP SCH (08:44)
[2019-09-03] MEDS: METOCLOPRAMIDE HCL 10 MG/2 ML VIAL IV PRN (08:54)
--- NOTE | 2019-09-03 08:54 | NUR ---
rn notes administered reglan 10 mg/ml iv push for nausea.
--- NOTE | 2019-09-03 10:57 | NUR ---
rn notes patient constipated,per hospitalist Danial DNP get TO order fleet enema x1 now, order taken and carried out.
[2019-09-03] MEDS ORDERED: MINERAL OIL 133 ML (PYXIS) 1 EA ENEMA RC ONE (11:00)
--- NOTE | 2019-09-03 12:27 | NUR ---
RN NOTES BS-105 MG/DL, PATIENT EATING WITH ASSIST OF FIELD CAPTAIN, KEEP HOB ELEVATED FOR ASPIRATION PRECAUTION, PATIENT REFUSED NAUSEA AT THIS TIME. ELEVATED BL LEGS USING PILLOWS, ASSIST TURN AND REPOSTION Q 2 HR. CONTINUED MONITORING.
[2019-09-03 12:49] LABS: BASOPHILS % (AUTO) 0.6 % (0.0-2.0); EOSINOPHILS % (AUTO) 2.8 % (0.0-6.0); HEMATOCRIT 35 % (33-45); HEMOGLOBIN 11.6 g/dL (11.5-14.8); LYMPHOCYTES % (AUTO) 17.4 % (20.0-44.0); MEAN CORPUSCULAR HGB CONC 33 g/dl (31.0-36.0); MEAN CORPUSCULAR VOLUME 88 fL (82-100); MONOCYTES # (AUTO) 0.4 /CMM (0.1-1.30); MONOCYTES % (AUTO) 6.4 % (2.0-12.0); NEUTROPHILS # (AUTO) 4.1 /CMM (1.8-8.9); NEUTROPHILS % (AUTO) 72.8 % (43.0-81.0); PLATELET COUNT (AUTO) 184 /CMM (150-450); RED BLOOD CELL COUNT(AUTO) 4.01 MIL/uL (4.0-5.2); WHITE BLOOD COUNT (AUTO) 5.7 K/uL (4.3-11.0)
[2019-09-03 13:30] LABS: ALBUMIN 2.2 g/dL (3.4-5.0); BILIRUBIN,TOTAL 0.6 mg/dL (0.2-1.0); CALCIUM, SERUM 8.6 mg/dL (8.5-10.1); CREATININE 1.2 mg/dL (0.6-1.3); MAGNESIUM 1.6 mg/dL (1.8-2.4); PHOSPHORUS 2.8 mg/dL (2.5-4.9); POTASSIUM 3.7 mmol/L (3.5-5.1); TOTAL PROTEIN, SERUM 5.3 g/dL (6.4-8.2)
--- NOTE | 2019-09-03 14:11 | NUR ---
rn notes fleet enema given, encouraged to increase fluid intake, continued monitoring.
[2019-09-03] MEDS ORDERED: MAGNESIUM OXIDE 400 MG TABLET PO ONE (15:00)
[2019-09-03] MEDS ORDERED: POLYETHYLENE GLYCOL 3350 17 GM POWD.PACK PO PRN (15:30)
[2019-09-03 16:00] VITALS: BP 125/69
--- NOTE | 2019-09-03 18:00 | NUR ---
RN NOTES BS-82 MG/DL, ASSIST PATIENT EATING BY VETERINARY MEDICINE SCIENTIST, TOLERATED DINNER 100%, ADMINISTERED MEDICATION CRUSHED AND MIXED WITH THE APPLE SAUCE, V/S STABLE, ASSIST TURN AND REPOSTION Q2 HR, DRESSING CHANGED, FAMILY NEX TO THE BED, ENDORSED ONCOMING NURSE FOLLOW PLAN OF CARE.
--- NOTE | 2019-09-03 19:20 | NUR ---
RN OPEN NOTES RECEIVED PATIENT AWAKE IN BED. A/OX1. NO SIGNS OF DISTRESS OR DISCOMFORT. BREATHING EVEN AND UNLABORED. PATIENT HAS NO IV ACCESS, PER AM SHIFT MD AWARE. PATIENT TO BE D/C'D HOME IN AM. BED IN LOW LOCKED POSITION WITH SIDE RAILS X2. CALL LIGHT WITHIN REACH. WILL CONTINUE TO MONITOR.
[2019-09-03 20:00] VITALS: BP 155/65
[2019-09-03] MEDS: QUETIAPINE FUMARATE 25 MG TABLET PO SCH (21:21)
[2019-09-03] MEDS: AMOXICILLIN TRIHYDRATE 250 MG CAPSULE PO SCH (21:22)
[2019-09-03] MEDS ORDERED: SENNOSIDES 8.6 MG TABLET PO SCH (22:00)
[2019-09-04] MEDS: BLOOD SUGAR DIAGNOSTIC 1 EACH STRIP IN SCH ×3 (06:22→17:36)
--- NOTE | 2019-09-04 07:07 | NUR ---
RN CLOSING NOTES PATIENT RESTING COMFORTABLY IN BED, EASILY AROUSABLE. A/OX1. NO SIGNS OF DISTRESS OR DISCOMFORT. BREATHING EVEN AND UNLABORED. PATIENT HAS NO IV ACCESS AT THIS TIME. ALL NEEDS MET. NO SIGNIFICANT CHANGES THROUGH THE NIGHT. PATIENT KEPT CLEAN DRY AND COMFORTABLE. BED IN LOW LOCKED POSITION WITH SIDE RAILS X2. CALL LIGHT WITHIN REACH. WILL ENDORSE TO AM SHIFT FOR FRANCY.
--- NOTE | 2019-09-04 07:20 | NUR ---
MS RN OPENING NOTES RECEIVED PT IN BED, ASLEEP, EASILY AROUSED, A/O 1-2, IVORIAN SPEAKING. PT TOLERATING RA, WITH NO ACUTE RESPIRATORY DISTRESS. PT DENIES ANY PAIN OR DISCOMFORT AT THIS TIME. ALSO DENIES ANY CONCERN OR QUESTIONS AT THE MOMENT. NO IVACCESS. PER NIGHT NURSE, PT SUPPOSED TO GET DISCHARGE YESTERDAY. PT KEPT COMFORTABLE IN BED. CALL LIGHT KEPT WITHIN REACH. PT'S BED IN LOWEST, LOCKED POSITION WITH SR X3.
[2019-09-04 08:00] VITALS: BP 105/55
[2019-09-04] MEDS: MEMANTINE HCL 5 MG TABLET PO SCH ×2 (08:11→18:01)
[2019-09-04] MEDS: GLUCERNA SHAKE 237 ML CAN PO SCH ×3 (08:12→17:36)
[2019-09-04] MEDS: DOCUSATE SODIUM 250 MG CAPSULE PO SCH (08:12)
[2019-09-04] MEDS: METFORMIN 500 MG TABLET PO SCH (08:12)
[2019-09-04] MEDS: AMOXICILLIN TRIHYDRATE 250 MG CAPSULE PO SCH (08:12)
[2019-09-04] MEDS: LINAGLIPTIN 5 MG TABLET PO SCH (08:12)
[2019-09-04] MEDS: PANTOPRAZOLE 40 MG TABLET.DR PO SCH (08:12)
[2019-09-04] MEDS: ASPIRIN EC 81 MG TABLET.DR PO SCH (08:12)
[2019-09-04] MEDS: THERAHONEY GEL 1.5 OZ TUBE TP SCH (08:24)
[2019-09-04] MEDS: Z GUARD REMEDY 2 OZ OINT TP SCH (08:24)
[2019-09-04] MEDS: ONDANSETRON HCL/PF 4 MG/2 ML VIAL IVP PRN (16:35)
--- NOTE | 2019-09-04 16:45 | NUR ---
MS RN NOTES ZOFRAN IV NOT GIVEN, PT HAS NO IV ACCESS. FAMILY AT BEDSIDE REQUESTING FOR ZOFRAN PO. ORDER CHANGED TO PO.
[2019-09-04] MEDS ORDERED: LIDOCAINE 0.5% HCL 50 ML VIAL ONE (16:49)
[2019-09-04] MEDS ORDERED: ONDANSETRON HCL 4 MG/5 ML SOLUTION PO ONE (17:00)
--- NOTE | 2019-09-04 18:32 | NUR ---
MS RN CLOSING NOTES PT REMAINS IN BED, ASLEEP, EASILY AROUSED, A/O 1-2, CZECH SPEAKING. PT TOLERATING RA, WITH NO ACUTE RESPIRATORY DISTRESS. PT DENIES ANY PAIN OR DISCOMFORT AT THIS TIME. NO IV ACCESS. PT TO DISCHARGE TO [facility] AT 8PM, REPORT GIVEN TO MANISHA/ILDA. PT KEPT COMFORTABLE IN BED. ALL NEEDS AND CARE ATTENDED. CALL LIGHT KEPT WITHIN REACH. PT'S BED IN LOWEST, LOCKED POSITION WITH SR X3. WILL ENDORSE TO INCOMING DRAW STRING KNOTTER FOR FRANCY.
[2019-09-04] MEDS: ACETAMINOPHEN 325 MG TABLET PO PRN (19:11)
[2019-09-04 20:00] VITALS: BP 105/64
[2019-09-04] MEDS ORDERED: ONDANSETRON 4 MG TAB.RAPDIS PO ONE (20:00)
--- NOTE | 2019-09-04 20:00 | NUR ---
MS RN NOTES AWAKE & RESPONSIVE. NOT IN ANY DISTRESS. NO SOB NOTED. DENIES ANY PAIN OR DISCOMFORT AT THIS TIME. PT FOR D/C TO [facility]. CALL LIGHT WITHIN REACH. BED IN LOWEST POSITION. SR UP X 3 WITH BED ALARM ON FOR SAFETY. WILL CONTINUE TO MONITOR.
--- NOTE | 2019-09-04 21:45 | NUR ---
MS RN NOTES AMBULANCE CAME IN & PICKED UP PT. PT AWAKE & RESPONSIVE. NOT IN ANY DISTRESS. NO SOB NOTED. DENIES ANY PAIN OR DISCOMFORT AT THIS TIME. WITH DTR AT BEDSIDE. REPORT GIVEN TO AMBULANCE PERSONNEL FOR CONTINUITY OF CARE. BELONGINGS SENT WITH PT.
== END 2019-09-04 21:45 | DRG 356 ==
LOC: ER 18:17 → MEDSG2 20:19
PROVIDERS: ADMIT Internal Medicine; ATTEND Nurse Practitioner Acute Care
PROC: 0JBR0ZZ Excision of Left Foot Subcutaneous Tissue and Fascia, Open Approach (ICD-10-PCS; principal; 2019-09-01)
PROC: 0JBQ0ZZ Excision of Right Foot Subcutaneous Tissue and Fascia, Open Approach (ICD-10-PCS; 2019-09-01)
DX: K56.41 Fecal impaction (principal); G93.41 Metabolic encephalopathy; N17.0 Acute kidney failure with tubular necrosis; E43 Unspecified severe protein-calorie malnutrition; E87.0 Hyperosmolality and hypernatremia; L97.429 Non-pressure chronic ulcer of left heel and midfoot with unspecified severity; L97.419 Non-pressure chronic ulcer of right heel and midfoot with unspecified severity; D68.69 Other thrombophilia; E11.621 Type 2 diabetes mellitus with foot ulcer; E11.42 Type 2 diabetes mellitus with diabetic polyneuropathy; G30.9 Alzheimer's disease, unspecified; F02.80 Dementia in other diseases classified elsewhere, unspecified severity, without behavioral disturbance, psychotic disturbance, mood disturbance, and anxiety; R13.10 Dysphagia, unspecified; I10 Essential (primary) hypertension; E66.9 Obesity, unspecified; Z68.33 Body mass index [BMI] 33.0-33.9, adult; E11.65 Type 2 diabetes mellitus with hyperglycemia; R53.1 Weakness; E11.51 Type 2 diabetes mellitus with diabetic peripheral angiopathy without gangrene; L97.519 Non-pressure chronic ulcer of other part of right foot with unspecified severity; L97.529 Non-pressure chronic ulcer of other part of left foot with unspecified severity; Z79.84 Long term (current) use of oral hypoglycemic drugs; E88.09 Other disorders of plasma-protein metabolism, not elsewhere classified
CPT/HCPCS: 36415; 71045-TC; 73620-TC; 80048-TC; 80053-TC; 80061-TC; 80076-TC; 81000-TC; 82378; 82962-TC; 83540-TC; 83690-TC; 83735-TC; 83880; 84100-TC; 84443-TC; 84484-TC; 85025-TC; 87070-TC; 87081-TC; 92521; 97112-TC; 97530-TC; A4216; A6253; A6403; G0378; J0290; J1815; J2405; J2765; J3490; Q0162

== ENCOUNTER 2021-03-21 15:41 | Inpatient (IN) | payer MEDICARE, OTHER ==
[~2021-03-21] VITALS: Ht 170.2 cm; Wt 60.5 kg
[~2021-03-21 15:41] MED LIST: ASPI-1420 PO; LOSA100T31 PO; MEMA10TA PO; QUET50TA PO; SITA1TAB6 PO
--- NOTE | 2021-03-21 15:41 | NUR ---
PT BIBRA 89 FROM HOME C/O FEVER AND DIARRHEA STARTED LAST YESTERDAY. PT IS AAOX0. PT IS MUTE. HOOKED TO PRODUCTION MANAGER, KEPT RESTED AND COMFORTABLE. WILL CONTINUE TO MONITOR.
--- NOTE | 2021-03-21 15:57 | NUR ---
PT SEEN AND EXAMINED BY INÉS LEMUS.
[2021-03-21] MEDS ORDERED: ACETAMINOPHEN ES 500 MG TABLET PO ONE (16:00)
[2021-03-21] MEDS ORDERED: ACETAMINOPHEN 650 MG/SUPP.RECT RC ONE ×2 (16:12→16:30)
[2021-03-21 16:30] LABS: BASOPHILS % (AUTO) 0.3 % (0.0-2.0); EOSINOPHILS % (AUTO) 0.1 % (0.0-6.0); HEMATOCRIT 39 % (33-45); HEMOGLOBIN 12.9 g/dL (11.5-14.8); LYMPHOCYTES # (AUTO) 1.6 K/uL (0.8-4.8); LYMPHOCYTES % (AUTO) 13.6 % (20.0-44.0); MEAN CORPUSCULAR HGB CONC 34 g/dl (31.0-36.0); MEAN CORPUSCULAR VOLUME 90 fL (82-100); MONOCYTES # (AUTO) 0.7 K/uL (0.1-1.30); MONOCYTES % (AUTO) 5.7 % (2.0-12.0); NEUTROPHILS # (AUTO) 9.5 K/uL (1.8-8.9); NEUTROPHILS % (AUTO) 80.3 % (43.0-81.0); PLATELET COUNT (AUTO) 191 K/uL (150-450); RED BLOOD CELL COUNT(AUTO) 4.27 MIL/uL (4.0-5.2); WHITE BLOOD COUNT (AUTO) 11.9 K/uL (4.3-11.0)
[2021-03-21] MEDS ORDERED: IV NS 0.9% 1,000 ML BAG IV ONE (16:30)
--- NOTE | 2021-03-21 16:30 | NUR ---
BLOOD DRAWN AND SENT TO LAB.
--- NOTE | 2021-03-21 16:41 | NUR ---
COVID SWAB DONE AND SENT TO LAB
--- NOTE | 2021-03-21 16:50 | NUR ---
MOVE SHEET SUBMITTED AND CALLED FOR BED.
--- NOTE | 2021-03-21 16:52 | NUR ---
PT IS UNABLE TO SPEAK ACCORDING TO DAUGHTER [phone] JOHNYiOculi AND NEEDS ASSISTANCE. NEEDS VICENTA SIMS PCP DR. ORONA [phone]
[2021-03-21] MEDS ORDERED: METO100T14 PO (16:55)
[2021-03-21] MEDS ORDERED: ESOM40CA52 PO (16:55)
[2021-03-21] MEDS ORDERED: LINA290C PO (16:55)
[2021-03-21] MEDS ORDERED: ZOLP10TA2 PO (16:56)
[2021-03-21 17:01] LABS: CALCIUM, SERUM 8.7 mg/dL (8.5-10.1); CARBON DIOXIDE 25 mmol/L (21-32); CHLORIDE 106 mmol/L (98-107); CREATININE 0.9 mg/dL (0.6-1.3); GLUCOSE 107 mg/dL (74-106); POTASSIUM 3.5 mmol/L (3.5-5.1); SODIUM SERUM 141 mmol/L (136-145); UREA NITROGEN, BLOOD 14 mg/dL (7-18)
[2021-03-21 17:07] LABS: ALANINE AMINOTRANSFERASE 11 U/L (12-78); ALBUMIN 2.7 g/dL (3.4-5.0); ALKALINE PHOSPHATASE 41 U/L (46-116); ASPARTATE AMINOTRANSFERASE 14 U/L (15-37); BILIRUBIN,DIRECT 0.3 mg/dL (0.0-0.2); BILIRUBIN,TOTAL 1.7 mg/dL (0.2-1.0); TOTAL PROTEIN, SERUM 6.4 g/dL (6.4-8.2)
--- NOTE | 2021-03-21 17:09 | NUR ---
ROOM 104
--- NOTE | 2021-03-21 17:10 | NUR ---
REPORT GIVEN TO NURSE HILL
[2021-03-21 17:19] LABS: BILIRUBIN,URINE Negative (NEGATIVE); COLOR,URINE YELLOW (YELLOW); LEUKOCYTE ESTERASE ,URINE Moderate (NEGATIVE); NITRITE, URINE Negative (NEGATIVE); PH,URINE 5.5 (5.0-8.0); PROTEIN,URINE Trace mg/dl (NEGATIVE); UGLUCOSE Negative (NEGATIVE); UROBILINOGEN,URINE 0.2 EU/dL (0.2)
[2021-03-21 17:28] LABS: BACTERIA,URINE Moderate /HPF (None Seen); SQUAMOUS EPITHELIAL CELL,UR Few /HPF (None Seen); YEAST,URINE Many /HPF (None Seen)
[2021-03-21] MEDS ORDERED: MAGNESIUM HYDROXIDE 30 ML UDC PO PRN (18:00)
[2021-03-21] MEDS ORDERED: ONDANSETRON HCL/PF 4 MG/2 ML VIAL IVP PRN (18:00)
[2021-03-21] MEDS ORDERED: Z GUARD REMEDY 2 OZ OINT TP PRN (18:00)
[2021-03-21] MEDS ORDERED: MAG HYDROX/AL HYDROX/SIMETH 30 ML UDC PO PRN (18:00)
[2021-03-21] MEDS ORDERED: ACETAMINOPHEN 325 MG TABLET PO PRN (18:00)
[2021-03-21] MEDS ORDERED: CEFTRIAXONE 1GM BAG (ER ONLY) 50 ML IV ONE (18:27)
[2021-03-21] MEDS ORDERED: CEFTRIAXONE 1GM BAG (ER ONLY) 1 GM/50 ML PIGGYBACK IV ONE (18:30)
[2021-03-21 18:34] VITALS: BP 136/45
--- NOTE | 2021-03-21 18:38 | NUR ---
RN NOTES: PATIENT RECEIVED VIA GURNEY FROM ER, PATIENT ON ROOM AIR NO SIGNS OF RESPIRATORY DISTRESS WITH EVEN NON-LABORED BREATHING. PATIENT NON-VERBAL. PATIENT SKIN IS WARM AND DRY TO TOUCH. LEFT UPPER ARM MIDLINE AND LEFT HAND 20 GAUGE INTACT AND PATENT. WALLS CATHETER INTACT AND FLOWING URINE BY GRAVITY. PATIENT PRESENTS WITH NO SIGNS OF PAIN OR DISCOMFORT. SAFETY PRECAUTIONS IMPLEMENTED WITH BED LOCKED, BILATERAL SIDE RAILS UP, BED ALARM ON, AND CALL LIGHT WITHIN EASY REACH. WILL ENDORSE PLAN OF CARE TO UPCOMING RN.
[2021-03-21 19:30] VITALS: BP 138/75
--- NOTE | 2021-03-21 19:30 | NUR ---
MANAGER OF ENGINEERING NOTE RECEIVED PATIENT FROM FILIBERTO GONSALES. ON ISOLATION FOR R/O COVID PATIENT RESTING IN BED. PATIENT IS MUTE, TOLERATING ROOM AIR. RESPIRATIONS ARE EVEN AND UNLABORED. NO S/S SOB NOTED. NO S/S PAIN NOTED. IN NO APPARENT DISTRESS. IV ACCESS IN DARREN MIDLINE AND LEFT HAND #20 PATENT AND SALINE LOCKED.WALLS CAHETER IS PRESENT, DRAINING TO GRAVITY, URINE IS YELLOW. INITAL PHYSICAL ASSESSMENT DONE AT THIS TIME. SKIN ASSESSMENT COMPLETE, PHOTOS TAKE AND PLACED IN CHART. PUTTIER OBTAINED VITALS. BED IS LOW AND LOCKED, HOB ELEVATED IN SEMI FOWLERS, SIDE RAILS UP X2, CALL LIGHT WITHIN REACH. WILL CALL DAUGHTER TO OBTAIN PAST MEDICAL HISTORY. WILL CONTINUE TO MONITOR THROUGHOUT SHIFT.
[2021-03-21] MEDS ORDERED: CEFTRIAXONE 1 G in IV D5W 50 ML IV SCH (20:00)
[2021-03-21] MEDS: IV NS 0.9% 1,000 ML IV PRN (20:15)
[2021-03-21] MEDS: ENOXAPARIN SODIUM 40 MG/0.4 ML DISP.SYRIN SQ SCH (20:17)
--- NOTE | 2021-03-21 21:00 | NUR ---
RN NOTE OBTAINED INFORMATION FROM DAUGHTER HARINI [phone]. INFORMED DAUGHTER SHE NEEDS TO PROVIDE A COPY OF PATIENT ADVANCE DIRECTIVE SOON POSSIBLE. PROVIDED DAUGHTER WITH UNIT FAX NUMBER [phone]. AWAITING FAX.
--- NOTE | 2021-03-21 22:10 | NUR ---
RN NOTE INFORMED DR DIAL IF HE CAN REVIEW PATIENTS MED RECON.
[2021-03-22 04:00] VITALS: BP 117/62
[2021-03-22 06:13] LABS: BASOPHILS % (AUTO) 0.2 % (0.0-2.0); HEMATOCRIT 37 % (33-45); HEMOGLOBIN 12.4 g/dL (11.5-14.8); LYMPHOCYTES # (AUTO) 0.9 K/uL (0.8-4.8); LYMPHOCYTES % (AUTO) 8.2 % (20.0-44.0); MEAN CORPUSCULAR HGB CONC 34 g/dl (31.0-36.0); MEAN CORPUSCULAR VOLUME 90 fL (82-100); MONOCYTES # (AUTO) 0.7 K/uL (0.1-1.30); MONOCYTES % (AUTO) 6.2 % (2.0-12.0); NEUTROPHILS # (AUTO) 9.5 K/uL (1.8-8.9); NEUTROPHILS % (AUTO) 85.4 % (43.0-81.0); PLATELET COUNT (AUTO) 164 K/uL (150-450); RED BLOOD CELL COUNT(AUTO) 4.08 MIL/uL (4.0-5.2); WHITE BLOOD COUNT (AUTO) 11.1 K/uL (4.3-11.0)
--- NOTE | 2021-03-22 06:14 | NUR ---
RN NOTE ON R/O ISOLATION FOR COVID. RESTING IN BED. REMAINS TOLERATING ROOM AIR. NO RESP DISTRESS. NO PAIN. NO DISTRESS. IV ACCESS IN DARREN MIDLINE IS INFILTRATED AND LEFT HAND #20 RUNNING NS@75ML/HR.WALLS CATHETER OUTPUT 400ML, YELLOW. PROVIDED PRN TYLENOL FOR TEMP THAT IS INCRESING, REMOVED ALL BLANKETS, AC ON. AND ICE. BED IS LOW AND LOCKED, HOB ELEVATED IN SEMI FOWLERS, SIDE RAILS UP X2, CALL LIGHT WITHIN REACH. STILL HAVE NOT RECEIVED ADVANCED DIRECTIVE AND PAPER OF DPOA FROM DAUGHTER JOHNY [phone]. WILL ENDORSE TO ONCOMING SHIFT.
[2021-03-22 06:31] LABS: CALCIUM, SERUM 8.4 mg/dL (8.5-10.1); CREATININE 0.8 mg/dL (0.6-1.3); MAGNESIUM 1.8 mg/dL (1.8-2.4); PHOSPHORUS 2.3 mg/dL (2.5-4.9)
[2021-03-22] MEDS: IV NS 0.9% 1,000 ML IV PRN (06:31)
--- NOTE | 2021-03-22 07:38 | NUR ---
RN OPENING NOTE Pt is asleep alert to tactile stimuli, no SOB, no respiratory distress. HOB maintained on semi-fowlers position. Iv hydration running 75cc/hr on right hand. Safety precautions implemented, bed locked in lowest position, call light within reach.
[2021-03-22] MEDS ORDERED: POTASSIUM CHLORIDE 20 MEQ TAB.PRT.SR PO ONE (08:00)
[2021-03-22] MEDS: POTASSIUM PHOSPHATE MM 7.5 MMOL in IV NS 0.9% 100 ML IV SCH ×3 (08:38→11:47)
--- NOTE | 2021-03-22 09:22 | NUR ---
WOUND CARE CONSULT: REVIEWED CHART, NURSING DOCUMENTATION AND PHOTOS WHICH INDICATE INTACT DEEP TISSUE INJURY TO RT HEEL, REDNESS/RASH TO RT AXILLA AND BREASTFOLDS, GROIN FOLDS WELL SACRAL SCARRING WHICH EXTENDS TO BUTTOCKS, ALL PRESENT ON ADMISSION. RECOMMENDATIONS MADE FOR SKIN PROTECTION. DISCUSSED WITH NURSING STAFF. MD IN AGREEMENT WITH PLAN OF CARE.
[2021-03-22] MEDS: POTASSIUM CHLORIDE 20 MEQ TAB.PRT.SR PO SCH ×2 (10:23→11:08)
[2021-03-22] MEDS: CLOTRIMAZOLE 1% 15 GM TUBE TP SCH (16:36)
[2021-03-22] MEDS: CEFTRIAXONE 1 G in IV D5W 50 ML IV SCH (17:12)
[2021-03-22] MEDS: MEMANTINE HCL 5 MG TABLET PO SCH (17:12)
--- NOTE | 2021-03-22 18:47 | NUR ---
RN CLOSING NOTES Pt is awake, alert to verbal and tactile stimuli, non-verbal, No respiratory distress, no SOB, satting 98% room air. Wound care rendered, F/C patent. No facial grimacing noted. Spoke with daughter updated on condition. Safety precautions implemented, bed locked in lowest position, call light within reach.
--- NOTE | 2021-03-22 19:30 | NUR ---
RN NOTE RECEIVED PATIENT IN BED. NONVERBAL. TOLERATING ROOM AIR. RESPIRATIONS ARE EVEN AND UNLABORED. NO S/S SOB NOTED. NO S/S PAIN NOTED. IN NO APPARENT DISTRESS. IV ACCESS IN DARREN MIDLINE AND LEFT HAND #20 RUNNING NS@75ML/HR.WALLS CATHETER IS PRESENT, DRAINING TO GRAVITY. BED IS LOW AND LOCKED, HOB ELEVATED IN SEMI FOWLERS, SIDE RAILS UP X2, CALL LIGHT WITHIN REACH. WILL CONTINUE TO MONITOR THROUGHOUT SHIFT,
[2021-03-22 20:00] VITALS: BP 149/71
--- NOTE | 2021-03-22 20:30 | NUR ---
RN NOTE INFORMED BUILDING AND GROUNDS SUPERVISOR DR. DIAL THAT PATIENT CRITICAL LAB FOR BLOOD CULTURE GRAM POSITIVE COCCI IN CLUSTERS AND THAT PATIENT IS ALREADY ON ROCEPHIN 1GM. NO NEW ORDERS RECEIVED AT THIS TIME. ALSO INFORMED MD THAT PATIENTS CODE STATUS IS BEING CHANGED TO DNR PER PATIENTS ADVANCE DIRECTIVE.
[2021-03-22] MEDS: ZOLPIDEM TARTRATE 10 MG TABLET PO SCH (21:09)
[2021-03-22] MEDS: ENOXAPARIN SODIUM 40 MG/0.4 ML DISP.SYRIN SQ SCH (21:10)
[2021-03-23] VITALS: BP 124/67
--- NOTE | 2021-03-23 01:09 | NUR ---
RN NOTE PATIENTS FAMILY IS REQUESTING FOR CDIFF SPECIMEN TO BE COLLECTED D/T PATIENT HAVING DIARRHEA PRIOR TO ADMISSION. INFORMED CLEAT BLANKER DR. DILA OF REQUEST AND THAT PATIENT IS IN FACT HAVING DIARRHEA, AND STOOL IS CURRENTLY AVAILABLE FOR COLLECTION. RECEIVED ORDER FOR C. DIFF STOOL COLLECTION. ORDER READ BACK NOTED AND CARRIED OUT.
[2021-03-23] MEDS: IV NS 0.9% 1,000 ML IV PRN ×2 (03:59→21:13)
[2021-03-23 04:00] VITALS: BP 136/58
--- NOTE | 2021-03-23 04:11 | NUR ---
RN NOTE PATIENT MOVED FROM ROOM 104 TO ROOM 117 WITH ALL BELONGINGS.
--- NOTE | 2021-03-23 06:37 | NUR ---
RN NOTE PATIENT RESTING IN BED. NONVERBAL. REMAINS TOLERATING ROOM AIR.NO RESP DISTRESS. NO PAIN. NO DISTRESS. IV LEFT HAND #20 RUNNING NS@75ML/HR.WALLS CATHETER OUTPUT 300 YELLOW WITH SEDIMENTS. BED REMAINS LOW AND LOCKED, HOB ELEVATED IN SEMI FOWLERS, SIDE RAILS UP X2, CALL LIGHT WITHIN REACH. WILL ENDORSE TO ONCOMING SHIFT.
[2021-03-23 07:02] LABS: BASOPHILS % (AUTO) 0.3 % (0.0-2.0); HEMATOCRIT 40 % (33-45); HEMOGLOBIN 13.4 g/dL (11.5-14.8); LYMPHOCYTES # (AUTO) 1.2 K/uL (0.8-4.8); LYMPHOCYTES % (AUTO) 8.5 % (20.0-44.0); MEAN CORPUSCULAR HGB CONC 33 g/dl (31.0-36.0); MEAN CORPUSCULAR VOLUME 91 fL (82-100); MONOCYTES # (AUTO) 0.8 K/uL (0.1-1.30); MONOCYTES % (AUTO) 5.9 % (2.0-12.0); NEUTROPHILS # (AUTO) 11.9 K/uL (1.8-8.9); NEUTROPHILS % (AUTO) 85.3 % (43.0-81.0); PLATELET COUNT (AUTO) 188 K/uL (150-450); WHITE BLOOD COUNT (AUTO) 13.9 K/uL (4.3-11.0)
[2021-03-23 07:21] LABS: CALCIUM, SERUM 8.5 mg/dL (8.5-10.1); CREATININE 0.8 mg/dL (0.6-1.3); MAGNESIUM 2.1 mg/dL (1.8-2.4); PHOSPHORUS 2.6 mg/dL (2.5-4.9)
--- NOTE | 2021-03-23 07:32 | NUR ---
CONTENT DEVELOPMENT MANAGER NOTE PATIENT IN BED , ON RA, NO SOB NOTED AT THIS TIME , RESTING COMFORTABLY IN BED , LT HAND HL INTACT , ON IVF ORDERED , BED IN LOWEST AND LOCKED POSITION , CALL LIGHT WITHIN REACH, WILL CONT TO MONITOR
[2021-03-23 08:00] VITALS: BP 99/42
[2021-03-23] MEDS: PANTOPRAZOLE 40 MG TABLET.DR PO SCH (08:51)
[2021-03-23] MEDS: MEMANTINE HCL 5 MG TABLET PO SCH ×2 (08:51→17:16)
[2021-03-23] MEDS: METOPROLOL SUCCINATE 50 MG TAB.SR.24H PO SCH (08:52)
[2021-03-23] MEDS: CLOTRIMAZOLE 1% 15 GM TUBE TP SCH ×2 (08:53→17:20)
[2021-03-23] MEDS ORDERED: LINACLOTIDE 290 MG PO SCH (09:00)
[2021-03-23] MEDS ORDERED: LINZESS 290 MCG PO SCH (09:00)
--- NOTE | 2021-03-23 09:10 | NUR ---
RN NOTE PATIENT WAS TRANSFERRED FROM [facility] TO [facility] VIA BED. NON VERBAL. ON ROOM AIR, NO SOB NOTED. IN NO APPARENT DISTRESS. VS BP 142/72 NM 91 RR 18 T 98.6 SA02 100%. IV ACCESS ON L HAND #20 G, NS X 75 ML/HR, INTACT AND PATENT. SAFETY MEASURES MAINTAINED. BED IN LOWEST POSITION, BRAKES LOCKED. SIDE RAILS UP X2. CALL LIGHT WITHIN REACH. WILL CONTINUE PLAN OF CARE.
--- NOTE | 2021-03-23 09:10 | NUR ---
ORDNANCE ENGINEERING TECHNICIAN NOTES PT WAS TRANSFERRED TO [facility] PER CHARGE NURSE ORDER, STABLE CONDITION. REPORT GIVEN BY CHARGE NURSE.
[2021-03-23] MEDS ORDERED: VANCOMYCIN 1.25 GM in IV D5W 250 ML IV SCH (10:00)
--- NOTE | 2021-03-23 11:22 | NUR ---
RN NOTE SPOKE WITH OSWALD FROM DIETARY AND PUT AN ORDER FOR SWALLOW EVAL. PER DTR, PATIENT'S DIET AT HOME IS PUREED AND NECTAR THICK. CHANGED THE ORDER FROM REGULAR TO PUREED DIET.
--- NOTE | 2021-03-23 13:55 | NUR ---
RN NOTE GOT A PHONE CALL FROM SAMANTHA FROM [employer]. PT IS POSITIVE FOR C. DIFF. IS MADE AWARE.
[2021-03-23 16:05] VITALS: BP 148/72
[2021-03-23] MEDS: CEFTRIAXONE 1 G in IV D5W 50 ML IV SCH (18:10)
--- NOTE | 2021-03-23 18:23 | NUR ---
RN CLOSING NOTE PATIENT IN BED. NON VERBAL. ON ROOM AIR, NO SOB NOTED. NO S/S OF RESPIRATORY DISTRESS. IV ACCESS ON L HAND #20 G, NS X 75 ML/HR, INTACT AND PATENT. NO SIGNS OF INFILTRATION. DUE MEDS GIVEN ORDERED. SAFETY MEASURES MAINTAINED. BED IN LOWEST POSITION, BRAKES LOCKED. SIDE RAILS UP X2. KEPT CALL LIGHT WITHIN REACH. WILL ENDORSE CONTINUITY OF CARE TO ONCOMING SHIFT.
--- NOTE | 2021-03-23 18:57 | NUR ---
RN NOTE CALLED PT'S DTR, JOHNY, TO FOLLOW UP LINZESS. DTR SAID IF THERE WOULD BE A SUBSTITUTE FOR THIS MEDICATION THEN IT WOULD BE BETTER. SHE ADDED THAT PT IS NOT HAVING CONSTIPATION AT THE MOMENT. PHARMACY IS MADE AWARE.
--- NOTE | 2021-03-23 19:40 | NUR ---
MSRN AWAKE, NON VERBAL. PRESENT IVF INFUSING WELL. KEPT DRY, CLEAN AND COMFORTABLE. PATIENT ON C DIFF ISOLATION. ISOLATION PRECAUTIONARY MEASURES OBSERVED. V/S STABLE
[2021-03-23 20:00] VITALS: BP 131/68
[2021-03-23] MEDS: ENOXAPARIN SODIUM 40 MG/0.4 ML DISP.SYRIN SQ SCH (21:14)
[2021-03-23] MEDS: ZOLPIDEM TARTRATE 10 MG TABLET PO SCH (22:00)
--- NOTE | 2021-03-23 22:47 | NUR ---
MSRN UNABLE TO GIVE DUE PO MEDS. REFUSED TO TAKE ANYTHING BY MOUTH. REPOSITIONED FOR COMFORT. PRESENT IVF INFUSING WELL.
--- NOTE | 2021-03-24 01:15 | NUR ---
MSRN AWAKE, STARTED EARLY AM CARE, PARTIALLY BATHED. MOANS AT TIMES WHEN REPOSITIONED. KEPT DRY CLEAN AND COMFORTABLE.
--- NOTE | 2021-03-24 06:30 | NUR ---
MSRN REPOSITIONED FOR COMFORT NO BM WHOLE SHIFT. CLOSELY WATCHED.
[2021-03-24 06:49] LABS: BASOPHILS % (AUTO) 0.2 % (0.0-2.0); EOSINOPHILS % (AUTO) 0.1 % (0.0-6.0); HEMATOCRIT 37 % (33-45); HEMOGLOBIN 12.3 g/dL (11.5-14.8); LYMPHOCYTES # (AUTO) 1.4 K/uL (0.8-4.8); MEAN CORPUSCULAR HGB CONC 34 g/dl (31.0-36.0); MEAN CORPUSCULAR VOLUME 90 fL (82-100); MONOCYTES # (AUTO) 0.8 K/uL (0.1-1.30); MONOCYTES % (AUTO) 5.8 % (2.0-12.0); NEUTROPHILS # (AUTO) 12.2 K/uL (1.8-8.9); NEUTROPHILS % (AUTO) 83.9 % (43.0-81.0); PLATELET COUNT (AUTO) 188 K/uL (150-450); RED BLOOD CELL COUNT(AUTO) 4.08 MIL/uL (4.0-5.2); WHITE BLOOD COUNT (AUTO) 14.6 K/uL (4.3-11.0)
[2021-03-24 06:52] LABS: CALCIUM, SERUM 8.1 mg/dL (8.5-10.1); CREATININE 0.7 mg/dL (0.6-1.3); MAGNESIUM 1.9 mg/dL (1.8-2.4); PHOSPHORUS 2.1 mg/dL (2.5-4.9); POTASSIUM 3.4 mmol/L (3.5-5.1)
[2021-03-24 08:00] VITALS: BP 119/59
[2021-03-24] MEDS: MEMANTINE HCL 5 MG TABLET PO SCH (09:05)
[2021-03-24] MEDS: PANTOPRAZOLE 40 MG TABLET.DR PO SCH (09:05)
[2021-03-24 09:06] VITALS: BP 119/59
[2021-03-24] MEDS: METOPROLOL SUCCINATE 50 MG TAB.SR.24H PO SCH (09:06)
[2021-03-24] MEDS: CLOTRIMAZOLE 1% 15 GM TUBE TP SCH (09:06)
--- NOTE | 2021-03-24 10:09 | NUR ---
RN NOTE PT FAILED SWALLOW EVAL, MADE NPO AWARE
[2021-03-24] MEDS ORDERED: VANCOMYCIN HCL 125 MG/2.5 ML ORAL.SUSP PO SCH (12:00)
[2021-03-24] MEDS: POTASSIUM CL. PREMIX PERIPHER. 50 ML IV SCH ×2 (12:15→12:23)
[2021-03-24] MEDS ORDERED: Sodium Phosphate 15 MMOL in IV NS 0.9% 250 ML IV ONE (16:30)
--- NOTE | 2021-03-24 16:35 | NUR ---
RN NOTE WHILE MAKING HOURLY ROUNDS PATIENT NOTED PALE, UNRESPONSIVE, NO VITAL APPRECIATED , NO OBVIOUS RISE AND FALL OF CHEST , NO BREATHE OR HEART SOUNDS AUSCULTATED DOUBLE CHECKED WITH CHARGE NURSE TO VERIFY OF PATIENT, [facility] CONTACTED, WILL NOT BE MOVING FORWARD, MD AWARE , FAMILY AWARE, MORTUARY CONTACTED AWAITING PICKUP
--- NOTE | 2021-03-24 19:50 | NUR ---
MS RN OPENING NOTES Handoff report was given by Nurse Benitez.
--- NOTE | 2021-03-24 21:00 | NUR ---
MS RN Notes [facility]
== END 2021-03-24 16:35 | DRG 871 ==
LOC: ER 15:46 → TELE1 17:20 → MEDSG1 18:07 → MED 03-23 08:50
PROVIDERS: ADMIT Internal Medicine; ATTEND Internal Medicine
PROC: 05H633Z Insertion of Infusion Device into Left Subclavian Vein, Percutaneous Approach (ICD-10-PCS; principal; 2021-03-21)
PROC: B547ZZA Ultrasonography of Left Subclavian Vein, Guidance (ICD-10-PCS; 2021-03-21)
DX: A41.9 Sepsis, unspecified organism (principal); E43 Unspecified severe protein-calorie malnutrition; G93.41 Metabolic encephalopathy; D68.59 Other primary thrombophilia; A04.72 Enterocolitis due to Clostridium difficile, not specified as recurrent; I10 Essential (primary) hypertension; G30.9 Alzheimer's disease, unspecified; F02.80 Dementia in other diseases classified elsewhere, unspecified severity, without behavioral disturbance, psychotic disturbance, mood disturbance, and anxiety; E11.9 Type 2 diabetes mellitus without complications; Z20.822 Contact with and (suspected) exposure to COVID-19; E83.39 Other disorders of phosphorus metabolism; E87.6 Hypokalemia; E88.09 Other disorders of plasma-protein metabolism, not elsewhere classified; L89.629 Pressure ulcer of left heel, unspecified stage; L89.619 Pressure ulcer of right heel, unspecified stage; B96.89 Other specified bacterial agents as the cause of diseases classified elsewhere; Z66 Do not resuscitate
CPT/HCPCS: 36415; 71045-TC; 80048-TC; 80076-TC; 81001; 82962-TC; 83605-TC; 83735-TC; 83880; 84100-TC; 84484-TC; 85025-TC; 85730-TC; 87040-TC; 87081-TC; 87086-TC; 92526; 92611-TC; 93307-TC; 97112-TC; 97530-TC; A9563; C9803; G0378; J0696; J1650; J3370; J3480; J3490; J7030; J7050; J7060; U0003